=== PATIENT | male | born 1960 | race Caucasian/White ===

== ENCOUNTER 2018-03-15 21:29 | Emergency (ER) | payer OTHER ==
[~2018-03-15] VITALS: Ht 182.9 cm; Wt 199.6 kg
[~2018-03-15 21:29] MED LIST: BENZONATATE100 MG; DIOVAN320 MG; HYDROCODONE-AP1 EAC6 PO; IBUPROFEN 800800 M1 PO; OSELB75; PROAIR HFA8.5 GM
[2018-03-15] MEDS ORDERED: OMEPRAZOLE 20 M20 M1 (21:42)
[2018-03-15] MEDS ORDERED: OXYCODONE PO (21:44)
[2018-03-15] MEDS ORDERED: METOPROLOL ER PO (21:45)
[2018-03-15] MEDS ORDERED: LAXATIVE MAXIMU25 MG (21:45)
[2018-03-15] MEDS ORDERED: AMLODIPINE BESY10 MG (21:45)
[2018-03-15] MEDS ORDERED: ZOFRAN ODT4 MG (21:46)
[2018-03-15] MEDS ORDERED: ENOXAPARIN40 MG/0.1 (21:46)
[2018-03-15 22:50] VITALS: BP 119/74
== END 2018-03-15 22:50 | disposition home or self-care (01) ==
LOC: M.ERS 21:29
DX: K56.41 Fecal impaction (principal); I10 Essential (primary) hypertension; Z87.891 Personal history of nicotine dependence

== ENCOUNTER → 2020-05-21 | Outpatient (CLI) | payer OTHER ==
[~2020-05-21] MED LIST changes: +AMLODIPINE BESY10 MG; +ENOXAPARIN40 MG/0.1; +LAXATIVE MAXIMU25 MG; +METOPROLOL ER PO; +OMEPRAZOLE 20 M20 M1; +OXYCODONE PO; +ZOFRAN ODT4 MG
== END ==
LOC: M.LAB 16:36
PROVIDERS: ATTEND Podiatrist
DX: U07.1 COVID-19 (principal); Z01.812 Encounter for preprocedural laboratory examination

== ENCOUNTER → 2020-07-03 | Outpatient (CLI) | payer OTHER ==
[~2020-07-03] MED LIST changes: +DIOVAN320 MG PO; +NORCO 10-325 T1 EACH PO; +NORVASC10 MG PO
[2020-07-03 09:30] LABS: HEMATOCRIT 41.6 % (42.0-52.0); HEMOGLOBIN 14.2 gm/dL (14.0-18.0); MCH 29.3 pg (26.0-34.0); MCV 86.2 fL (80.0-100.0); MPV 7.7 fl. (7.2-11.1); RBC 4.83 mil/uL (4.50-6.00); RDW-CV 14.9 % (10.5-14.5); WBC 6.4 thou/uL (4.0-11.0)
[2020-07-03 09:41] LABS: ALBUMIN 3.3 g/dL (3.4-5.0); CALCIUM 8.2 mg/dL (8.5-10.1); POTASSIUM 4.2 mmol/L (3.5-5.1); TOTAL BILIRUBIN 0.3 mg/dL (<0.1-1.0); TOTAL PROTEIN 6.7 g/dL (6.4-8.2)
== END ==
LOC: M.LAB 08:48
PROVIDERS: ATTEND Podiatrist
DX: U07.1 COVID-19 (principal); M25.571 Pain in right ankle and joints of right foot

== ENCOUNTER 2020-07-06 06:09 | Observation (INO) | payer OTHER ==
[~2020-07-06] VITALS: Ht 180.3 cm; Wt 149.7 kg
--- NOTE | ~2020-07-06 | OP ---
[facility] [address] [place] [address] OPERATIVE REPORT Name: ANTONELLA GARAY Lisa Room: [address] Di#: [id number] Admission: 07/06/20 Attend Phys: Nishi Phillips Discharge: Date of : 62 Report #: [id number] THIS REPORT FOR: //name// cc: Tadeo Goel Russell J. DO ~ CC: Michelle Euceda DATE OF SERVICE: 07/06/2020 SURGEON: Michelle Estevez DPM TRACK MECHANIC: None. PREOPERATIVE DIAGNOSES: 1. Ankle instability, right ankle. 2. Right ankle pain. POSTOPERATIVE DIAGNOSES: 1. Ankle instability, right ankle. 2. Right ankle pain. PROCEDURE PERFORMED: Right ankle Brostrom type ATFL repair with internal brace. PATHOLOGY: Ligament, right ankle sent for evaluation. HEMOSTASIS: Pneumatic thigh tourniquet at 300 mmHg. ESTIMATED BLOOD LOSS: 5 mL. MATERIALS USED: Arthrex FiberTak x 2 as well as Arthrex internal bridge 4-0 Vicryl, 2-0 Vicryl and 4-0 nylon. INJECTABLES: 10 mL of 0.5% Marcaine plain. COMPLICATIONS: None. DESCRIPTION OF PROCEDURE: The patient was brought into the operating room and placed on the operating room in the supine position. The hip bump was then placed on the patient's right hip at this time. There was something placed under the patient's right hip in order to allow for lateralization of the patient's ankle for visualization at this time. The patient was also placed under general anesthesia and pneumatic thigh tourniquet was then placed with adequate padding noted. At this time, a local [place] [address] OPERATIVE REPORT Name: ANTONELLA GARAY Room: [address] Letty Sevilla#: [id number] Admission: 07/06/20 Attend Phys: Nishi Phillips Discharge: Date of : 62 Report #: [id number] confirmation of patient surgery sites and procedures. At this time, then the patient's right lower extremity was then scrubbed, prepped and draped in the usual aseptic manner. Then, a pneumatic thigh tourniquet was then inflated to 300 mmHg after exsanguination of the right lower extremity. Attention was then directed to the anterior lateral portion of the patient's right ankle where an approximately 3 cm incision was then made over the anterior talofibular ligament in direction of the relaxed skin tension lines. Blunt dissection was then performed at this time also with electrocautery because there was a large amount of fat padding overlying the lateral malleolus and over the lateral ankle at this time and this was performed until the ligament was visible. There were many fibrous bands noted throughout and once the anterior talofibular ligament was identified, it was resected off the anterior portion of the fibula with a #15 blade. It is important to note that within the anterior talofibular ligament, there was discoloration along its most proximal portion with significant thickening and hardening. This was resected at this time utilizing a #15 blade and passed from the operative field to be sent for pathology. Once this was completed, the anterior portion of the fibula was then roughened utilizing rongeur and rasp at this time, in order to allow for better adhesion of the ATFL once reattached. Next, at this time, we were able to visualize the lateral aspect of the ankle joint. Cartilage was noted to be within normal limits without discoloration at this time and able to also visualize the anterolateral portion of the talar dome, shoulder and neck at this time once blunt dissection was completed. So at this time, the two FiberTak Arthrex anchors were then placed utilizing the surgical technique with a cannulated system. The first FiberTak was placed along the most distal portion of the anterior fibula and the second was placed more proximally in line with the first about 1.5 cm away. Once this was then completed, the preparation for the internal brace was done at this time. Angulation and insertion of the most talar portion of the internal brace was done at this time through percutaneous incision through the extensor retinaculum at this time and visualized to attach to the anterior lateral portion of the body of the talus. At this time, once positioning was noted to be adequate visually, the internal brace anchor was then placed at this time utilizing the Arthrex surgical technique. All anchors were then tested at this time and noted to have adequate strength and did not move throughout. So at this time, starting with the surgical technologist the Brostrom repair was then started. At this time, the FiberWire was then driven through both the ATFL and extensor retinaculum utilizing a rmuve-ngpp-akhd technique and tightened with the ankle in a dorsiflexed and everted position at this time and a hand knotted into place and excess FiberWire was then cut at this time. The ankle was then tested at this time and noted to have reduced inversion range of motion at this time, but there was still some remaining. So now, at this time, the FiberWire from the internal brace was then also drilled in between the previous two anchors of the SutureTak into the anterior fibula at this time and was then tensioned with the ankle in dorsiflexion and inversion at this time and noted to have adequate hold and correction of deformity. Again, [place] [address] OPERATIVE REPORT Name: ANTONELLA GARAY Lisa Room: [address] Letty Sevilla#: [id number] Admission: 07/06/20 Attend Phys: Nishi Phillips Discharge: Date of : 62 Report #: [id number] tested and the amount of inversion, eversion at the level of the ankle was noted to be significantly reduced at this time. Excess suture was also cut and removed at this time. Next, any remaining capsular ligamentous redundant tissue was also sewn at this time utilizing 2-0 FiberWire as well as a 2-0 Vicryl for the deep tissue and subcutaneous tissue. Prior to the closure, the surgical site was copiously irrigated with sterile normal saline. The subcutaneous tissue was then reapproximated utilizing 4-0 Vicryl in a running subcuticular technique and the skin was then closed utilizing 4-0 nylon in a simple suture fashion. The pneumatic thigh tourniquet was also deflated at this time and there was a prompt hyperemic response noted throughout the patient's right lower extremity. The patient's surgical site was then cleansed and dressed with an Arthrex JumpStart incision dressing as well as 4 x 4 gauze, Kerlix and Coban. 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 Due to that at this time, the patient will be placed in Cam walker boot in the postoperative area. The patient tolerated the procedure and anesthesia well and was transported from the operating room to the recovery room with vital signs stable and neurovascular status intact to the right lower extremity. The patient is to be admitted for 23-hour observation for pain control and gait training to be nonweightbearing to the right lower extremity. By: [id number] Estevez DPM /jose a
[2020-07-06] MEDS ORDERED: ALPRAZOLAM 0.50.5 M1 PO (06:22)
[2020-07-06 07:08] VITALS: BP 166/87
[2020-07-06] MEDS ORDERED: NORCO 5-325 TA1 EAC2 PO (09:35)
[2020-07-06] MEDS ORDERED: PERCOCET 5-3251 EACH PO (09:35)
--- NOTE | 2020-07-06 10:15 | EKG ---
[place] [address] ELECTROCARDIOGRAM REPORT Name: ANTONELLA GARAY Room: [address]R.#: [id number] Admission: 07/06/20 Attend Phys: Moe Euceda Discharge: Date of : 62 Date of Service: 07/06/20 0635 Report #: [id number] THIS REPORT FOR: //name// [facility] Test Date: 2020-07-06 Test Time: 06:35:09 Pat Name: ANTONELLA GARAY Department: Room: [place] [address] Gender: M Container Finisher: ANTONIA RICE : 1960 Requested By: Michelle Estevez Order Number: [id number] MD: Alexis Craft Measurements Intervals Urania Rate: 65 P: 25 PA: 218 QRS: 23 QRSD: 117 T: 32 QT: 442 QTc: 460 Interpretive Statements Sinus rhythm Prolonged PA interval Nonspecific intraventricular conduction delay Compared to ECG 09/21/2009 23:31:46 First degree AV block now present Electronically Signed On 07-06-2020 10:15:38 CDT by Alexis Craft [email or web address] <ELECTRONICALLY SIGNED> By: Alexis Craft MD, [facility] 07/06/20 1015 0635 0635 Alexis Craft MD, [facility] /EPI
[2020-07-06 11:19] VITALS: BP 152/81
[2020-07-06 15:52] VITALS: BP 148/76
[2020-07-06 19:36] VITALS: BP 132/66
[2020-07-07 00:06] VITALS: BP 139/69
[2020-07-07 04:02] VITALS: BP 131/71
[2020-07-07 08:00] VITALS: BP 145/83
[2020-07-07 12:28] VITALS: BP 145/83
[2020-07-07 12:52] VITALS: BP 145/83
--- NOTE | 2020-07-09 15:07 | PATH ---
[address] [address] PATHOLOGY RPT PROCEDURE Name: ANTONELLA GARAY Room: [address] Letty Sevilla#: [id number] Admission: 07/06/20 Date of : 62 Discharge: 07/07/20 Report #: [id number] Path Case #: [id number] [facility] Accession Number: [id number] . 01 Material submitted: . ankle - LIGAMENT RIGHT ANKLE. Modifiers: right . 01 Clinical history: . RIGHT ANKLE INSTABILITY . 02 Diagnosis: Ligament right ankle: - Benign dense fibrous connective tissue. (ELMER:stephanie; 07/09/2020) MBR 07/09/2020 1327 Local . 02 Electronically signed: . Mitchel Medina MD, Pathologist NPI- [id number] . 01 Gross description: . The specimen is received in formalin, labeled "[place], Antonella, ligament right ankle" and consists of 2 segments of pink-anguiano tissue measuring 0.8 x 0.4 x 0.3 cm and 0.9 x 0.7 x 0.3 cm which are entirely submitted in A1. (SDY; 07/06/2020) SYU/SYU 07/06/2020 1628 Local . 02 Pathologist provided ICD-10: M25.371 . 02 CPT . 614022 Specimen Comment: A courtesy copy of this report has been sent to [phone] Specimen Comment: [phone], Specimen Comment: Report sent to ,DR TRIPLETT / DR CRAMER Performed at: [address], [place] [id number] MD Tadeo Acevedo MD Phone: [phone] Performed at: 02 [facility] [address], [place], [place] [id number] MD Mitchel Medina MD Phone: [phone]
== END 2020-07-07 13:30 | disposition home or self-care (01) ==
LOC: M.PRE → M.TBA 06:09 → M.ORTHSURG 06:09 → M.TBA 06:09 → M.PRE 08:48 → M.ORTHSURG 11:00 → M.PRE 11:53 → M.ORTHSURG 07-07 13:30
PROVIDERS: ADMIT Internal Medicine; ATTEND Internal Medicine
DX: M25.371 Other instability, right ankle (principal); I10 Essential (primary) hypertension; G47.33 Obstructive sleep apnea (adult) (pediatric); E66.01 Morbid (severe) obesity due to excess calories; M25.571 Pain in right ankle and joints of right foot; Z68.42 Body mass index [BMI] 45.0-49.9, adult; Z86.19 Personal history of other infectious and parasitic diseases; Z87.891 Personal history of nicotine dependence; Z79.899 Other long term (current) drug therapy